=== PATIENT | female | born 1940 | race Caucasian/White ===

== ENCOUNTER 2017-06-06 06:17 | Day surgery (SDC) | payer MEDICARE, BC, OTHER ==
[~2017-06-06 06:17] MED LIST: BACL10TA PO; BENA25TA5 PO; BENI40TA30 PO; CLON1 PO; EPIP0.3I IM; GABA300C3 PO; METO25 PO; NORV5TAB PO; PRED50TA PO; SERT-132 PO
[2017-06-06] MEDS ORDERED: CHLORHEXIDINE GLUCONATE 2 % 1 PACK (2 CLOTHS) TOPICAL SCH (07:00)
[2017-06-06] MEDS ORDERED: POVIDONE IODINE 5% (ANTISEPSIS KIT) 4 APPLICATIONS EACH NARE SCH (07:00)
[2017-06-06] MEDS ORDERED: MUPIROCIN 2% OINT 1 APPLIC/GM SYR NASAL SCH (07:00)
[2017-06-06] MEDS ORDERED: ceFAZolin 2 GM PREMIX 50 ML IV SCH (07:00)
[2017-06-06] MEDS ORDERED: NS 1000 ML IV SCH (07:00)
[2017-06-06] MEDS ORDERED: PRAM0.25 PO (07:03)
[2017-06-06] MEDS ORDERED: BUSP1TAB PO (07:03)
[2017-06-06] MEDS ORDERED: HYDR25TA5 PO (07:03)
[2017-06-06] MEDS ORDERED: METO50TA PO (07:03)
[2017-06-06] MEDS ORDERED: LOSA100T PO (07:03)
[2017-06-06] MEDS ORDERED: hydrALAZINE HCL 20 MG/ML VIAL ONE (09:09)
[2017-06-06] MEDS ORDERED: hydrALAZINE HCL 20 MG/ML VIAL IV PUSH ONE (09:30)
--- NOTE | 2017-06-06 09:32 | MA ---
cc: Yusuf Carmona MD 06/06/2017 PROCEDURE PERFORMED: Loop recorded insertion. PERFORMING PHYSICIAN: Yusuf Carmona MD INDICATION: Atrial fibrillation detection. DESCRIPTION OF PROCEDURE: The patient was brought to the DOC Unit in the postabsorptive state after informed consent was obtained. A CRE Secure LINQ loop recorder was inserted subcutaneously in the left chest. The patient tolerated the procedure well, without any apparent complications. Tachy-tory pause in atrial fibrillation detection was enabled. The initial R-wave was 0.52 millivolts. The serial number was [id number]. MD WALTER Baker/ANGIE , 08:41 AM , 09:31 AM
== END 2017-06-06 09:34 | disposition home or self-care (01) ==
LOC: HDOC 06:17 → HDIC 06:18 → HDOC 09:34
PROVIDERS: ATTEND Nuclear Medicine Nuclear Cardiology
DX: I48.91 Unspecified atrial fibrillation (principal); I10 Essential (primary) hypertension
CPT/HCPCS: 33282; C1764; J0360; J0690

== ENCOUNTER 2017-08-11 05:41 | Day surgery (SDC) | payer MEDICARE, BC, OTHER ==
[2017-08-11] VITALS (10 sets, daily range): BP systolic 125–181; BP diastolic 70–119; PULSE 48–84; RESP 14–16; TEMP 97.7–98.7; O2SAT 97–98
[~2017-08-11] VITALS: Ht 160 cm; Wt 75.8 kg
[~2017-08-11 05:41] MED LIST changes: -BACL10TA PO; -BENA25TA5 PO; -BENI40TA30 PO; +BUSP1TAB PO; -CLON1 PO; -EPIP0.3I IM; -GABA300C3 PO; +HYDR25TA5 PO; +LOSA100T PO; -METO25 PO; +METO50TA PO; -NORV5TAB PO; +PRAM0.25 PO; -PRED50TA PO; -SERT-132 PO
[2017-08-11] MEDS ORDERED: LORazepam 1 MG TAB SL SCH (06:00)
[2017-08-11] MEDS ORDERED: CHLORHEXIDINE GLUCONATE 2 % 1 PACK (2 CLOTHS) TOPICAL PRN (06:15)
[2017-08-11] MEDS ORDERED: METOPROLOL TARTRATE 25 MG TAB PO PRN (06:15)
[2017-08-11] MEDS ORDERED: POVIDONE IODINE 5% (ANTISEPSIS KIT) 4 APPLICATIONS EACH NARE PRN (06:15)
[2017-08-11] MEDS ORDERED: LACTATED RINGER'S 1000 ML IV PRN (06:15)
[2017-08-11] MEDS ORDERED: SODIUM CHLORID 0.9% 500 ML IV PRN (06:15)
[2017-08-11] MEDS ORDERED: ASPI81CH6 CHEW (06:45)
[2017-08-11 06:52] LABS: AUTOMATED NEUTROPHIL # 3.4 TH/MM3 (1.8-7.7); BASOPHIL # 0.1 TH/MM3 (0-0.2); BASOPHIL % 1.1 % (0.0-2.0); EOSINOPHIL # 0.1 TH/MM3 (0-0.4); EOSINOPHIL % 2.3 % (0.0-4.0); HEMATOCRIT 33.2 % (35.0-46.0); HEMOGLOBIN 11.3 GM/DL (11.6-15.3); LYMPH % 26.1 % (9.0-44.0); LYMPHOCYTE # 1.4 TH/MM3 (1.0-4.8); MEAN CORPUSCULAR HEMOGLOBIN 28.2 PG (27.0-34.0); MEAN CORPUSCULAR HGB CONC 33.9 % (32.0-36.0); MEAN PLATELET VOLUME 7.9 FL (7.0-11.0); MONO % 8.2 % (0.0-8.0); MONOCYTE # 0.4 TH/MM3 (0-0.9); NEUT % 62.3 % (16.0-70.0); PLATELET COUNT 203 TH/MM3 (150-450); RED CELL DISTRIBUTION WIDTH 14.1 % (11.6-17.2); WHITE BLOOD COUNT 5.5 TH/MM3 (4.0-11.0)
[2017-08-11] MEDS ORDERED: MIDAZOLAM HCL 2 MG/2 ML VIAL ONE (06:55)
[2017-08-11 06:59] LABS: PROTHROMBIN TIME - PATIENT 10.3 SEC (9.8-11.6)
[2017-08-11] MEDS ORDERED: ISOPROTERENOL INJ PREMIX 50 ML IV ONE (06:59)
[2017-08-11] MEDS ORDERED: HEPARIN SODIUM - IV 10,000 UNITS/10 ML VIAL ONE (07:00)
[2017-08-11] MEDS ORDERED: HEPARIN-D5W 25,000 U/250 ML 250 ML ONE (07:00)
[2017-08-11] MEDS ORDERED: PROTAMINE SULFATE 50 MG/5 ML VIAL ONE (07:01)
[2017-08-11 07:24] LABS: BICARBONATE 27.5 MEQ/L (21.0-32.0); CALCIUM 8.7 MG/DL (8.5-10.1); CREATININE 1.14 MG/DL (0.50-1.00)
[2017-08-11] MEDS: SODIUM CHLORID 0.9% 500 ML INJ 500 ML IV SCH ×2 (07:30→22:49)
[2017-08-11] MEDS ORDERED: HEPARIN-NS/PF FLUSH BAG 1,000 ML IV FLUSH ONE (07:39)
[2017-08-11] MEDS ORDERED: SODIUM CHLOR 0.9% 250 ML INJ 250 ML IV PRN (09:00)
[2017-08-11] MEDS ORDERED: LIDOCAINE HCL 1% 50 ML VIAL INFIL PRN (09:00)
[2017-08-11] MEDS ORDERED: BACITRACIN OINT 0.9 GM PKT TOP ONE (09:00)
[2017-08-11] MEDS ORDERED: oxyCODONE/ACETAMINOPHEN 5 MG/325 MG TAB PO PRN ×2 (09:00)
[2017-08-11] MEDS ORDERED: LORazepam 2 MG/ML VIAL IV PUSH PRN (09:00)
[2017-08-11] MEDS ORDERED: ATROPINE SULFATE 1 MG/ML VIAL IV PUSH PRN (09:00)
--- NOTE | 2017-08-11 09:09 | CATHPROC ---
Patient Name: JACK VELAZQUEZ Study #: [id number] Initial MD: Janelle Martinez Date of : 1940 Study Date: 08/11/2017 Cardiac Catheterization Report 08/11/2017 9:09:03 AM Financial #: [id number] 1 of 9 Patient Name: JACK VELAZQUEZ Study #: [id number] Initial MD: Janelle Martinez Date of : 1940 Study Date: 08/11/2017 Entire Case Report Patient Information Patient Name JACK VELAZQUEZ Date of 1940 Age 77 years Financial # [id number] Gender F AlternateID Lab Number 2 Room Number DC05 Height (in) 64.0 Height (cm) 162.6 BSA 1.81 Weight (lbs) 166.8 Weight (kg) 75.8 Patient Address/Phone Number Home Address [facility] Home Phone Number [phone] [facility] [place] [address] Study Information Study Number Admission Scheduled Start Study Start [id number] Aug 11 2017 5:41AM 08/11/2017 Aug 11 2017 6:48AM [place] Service Electrophysiology Study Admit Source Facility Department Other [facility] - Inventory Accountant Physician and Clinical Staff Initial Janelle Whitney Event Producer Magdaleno Way,RT(R) Event Producer Shannon Zhang,DAILY RELEASE AND DUPE PRINTER Other Anesthesia, MARINE UNDERWRITER Recorder Scarlet Higgins,JANENE Scrub Saskia Kang,SIDE GUIDER TECH2 Procedures Performed Procedure Location (Site) Vessel Name RF Ablation Isthmus Other 08/11/2017 9:09:03 AM Financial #: [id number] 2 of 9 Patient Name: JACK VELAZQUEZ Study #: [id number] Initial MD: Janelle Martinez Date of : 1940 Study Date: 08/11/2017 Equipment Time Preparation Supervisor Freezing Description Size Mfg Part Number Used/Scraped BIOSENSE IBARRA CATHETER, CELSIUS, 4MM, D [id number] 08:32 FR 7 Used INC. TYPE QUAD *[id number] 07:24 MEDLINE INDUSTRIES PACK, CCL CUSTOM * Used *[id number] 07:24 MEDLINE PACER MORRELL, LIMB * 2530 *[id number] Used [id number] 07:24 [employer]EDRA MED[employer] BLANKET,WARM AIR CCL * Used *[id number] 07:25 ST. RUP[employer] MEDICAL CATHETER, JSN, QUAD FR 5 Used *[id number] 07:25 [employer] RUP[employer]ER MEDICAL CATHETER, JSN, QUAD FR 5 Used *[id number] 842886 07:25 [employer] RUP[employer]ER MEDICAL CATHETER, JSN, QUAD FR 5 Used *[id number] 310317 07:25 [employer] RUP[employer]ER MEDICAL CATHETER, JSN, QUAD FR 5 Used *1622485 [id number] 07:24 ST. RUPINDER MEDICAL ELECTRODE KIT, CHRISTIANA X SURFACE * Used *7350060 247097 07:25 [employer] RUP[employer] MEDICAL SHEATH, EPS, FR5 FAST CATH FR 5 Used *[id number] 391227 07:25 [employer] RUPINDER MEDICAL SHEATH, EPS, FR5 FAST CATH FR 5 Used *1218016 195801 07:25 [employer] RUPINDER MEDICAL SHEATH, EPS, FR5 FAST CATH FR 5 Used *[id number] 549158 07:25 [employer] RUPINDER MEDICAL SHEATH, EPS, FR6 FAST CATH FR 6 Used *4848954 533184 07:25 [employer] RUPINDER MEDICAL SHEATH, EPS, FR8 FAST CATH FR 8 Used *[id number] [facility] PAD, ELECTROSURGICAL 07:24 * [id number] *[id number] Used SURGICAL GROUNDING (BLUE) Insurance Information Insurance Payor Medicare Third Libertarian Third Libertarian Number MEDICARE A B MCRAB History: Allergies Allergy Reaction primidone angioedema No Known Allergies History: Risk Factors Hypertension Yes Labs 08/11/2017 9:09:03 AM Financial #: [id number] 3 of 9 Patient Name: JACK VELAZQUEZ Study #: [id number] Initial MD: Janelle Martinez Date of : 1940 Study Date: 08/12/19 18 Hgb (g/dl) Hct (%) RBC (MIL/MM3) WBC (l/cumm) Platelets (thousands) 11.60-17.00 35.00-51.00 4.00-5.90 4.00-11.00 150.00-450.00 11.0 33 4 5.5 203 Glucose (mg/dl) BUN (mg/dl) Creatinine (mg/dl) BUN:Creatinine (1:x) 74.00-106.00 7.00-18.00 0.50-1.30 10.00-20.00 98 15 1.1 13.6 Na (meq/l) K (meq/l) 136.00-145.00 3.50-5.10 141 4 INR (PTT:PT) 0.90-1.10 1 Medication Medication Total Dose (Bolus/Oral) Medication Total Dosage/Unit 1% XYLOCAINE 40 mL Medications (Bolus/Oral) Medication Time Given Dosage/Unit Administered By Reason 1% XYLOCAINE 08/11/2017 8:07:24 AM 20 mL Janelle Martinez 20 mL 1% XYLOCAINE given in lab by Janelle Martinez in Left Groin via Subcutaneous. 1% XYLOCAINE 08/11/2017 8:10:28 AM 20 mL Janelle Martinez 20 mL 1% XYLOCAINE given in lab by Janelle Martinez in Right Groin via Subcutaneous. Medication (Drip) Medication Time Given Dosage/Unit Concentration/Unit Diluent (ml) Solution ISUPREL 08/11/2017 8:23:00 AM 4 mcg/min 1 mg 250 NaCl .9 4 mcg/min ISUPREL given in lab by An, MARINE UNDERWRITER via Peripheral IV. Pump/Drip Flow = 60 ml/hr using NaCl .9 with a concentration of 1 mg in 250 ml. Ordered by Janelle Martinez. Reason: As per physicians verbal order. IV Solutions 08/11/2017 7:27:08 AM 0 mL (IV) 500 NaCl .9 IV Solutions given in lab by Scarlet Higgins RN in Right Antecubital via Peripheral IV. Pump/Drip F low = 20 ml/hr using NaCl .9. Ordered by Janelle Martinez. IV Solutions 08/11/2017 7:28:13 AM 0 mL (IV) 500 NaCl .9 IV Solutions given in lab by Scarlet Higgins RN in Left Antecubital via Peripheral IV. Pump/Drip Fl ow = 20 ml/hr using NaCl .9. Ordered by Janelle Martinez. 08/11/2017 9:09:03 AM Financial #: [id number] 4 of 9 Patient Name: JACK VELAZQUEZ Study #: [id number] Initial MD: Janelle Martinez Date of : 1940 Study Date: 08/11/2017 Initial Case Assessment Cardiovascular HR Rhythm NIBP 75 sr 185/112 Edema Present Skin color Skin None Normal Warm Dry Circulatory - Right Pulses Posterior Tibial 3 Scale (0,1,2,3,4,d) Circulatory - Left Pulses Posterior Tibial 3 Scale (0,1,2,3,4,d) Circulatory - Lower Extremities Color Lower Right Color Lower Left Normal Normal Neurological State Oriented to time-place- Alert Moves all extremities person Respiration - General SpO2 (%) 99 08/11/2017 9:09:03 AM Financial #: [id number] Patient Name: JACK VELAZQUEZ Study #: [id number] Initial MD: Janelle Martinez Date of : 1940 Study Date: 08/11/2017 Final Case Assessment Cardiovascular HR Rhythm NIBP Chest Pain 93 sr 115/71 0 Edema Present Skin color Skin None Normal Warm Dry Circulatory - Right Pulses Posterior Tibial 3 Scale (0,1,2,3,4,d) Circulatory - Left Pulses Posterior Tibial 3 Scale (0,1,2,3,4,d) Circulatory - Lower Extremities Color Lower Right Color Lower Left Normal Normal Neurological State Drowsy Moves all extremities Respiration - General Respiration Rate SpO2 (%) O2 (lpm) (B/min) 16 91 6 Chronological Log Time Study Chronological Log 7:23:47 Patient arrived via Bed. 7:23:51 Patient Name, D.O.B, / Armband Verified By R.N. 7:23:52 Consent signed by the physician and the patient and verified by the Inventory Accountant staff. 7:23:53 Pre-op and post- op instructions given; patient acknowledges understanding of instructions. 7:25:24 Verbal Stimulation=2 Physical Stimulation=2 Airway=2 Respiration=2 TOTAL=8. (0=absent, 1=li mited, 2=present) 7:26:02 Patient has been NPO for More than 6Hrs. 7:26:03 Skin Breakdown/none per pt 7:26:19 Patient Warmer Placed on the Table. 7:26:20 Disposable Defibrillator Pads Placed On Patient. 08/11/2017 9:09:03 AM Financial #: [id number] Patient Name: JACK VELAZQUEZ Study #: [id number] Initial MD: Janelle Martinez Date of : 1940 Study Date: 08/11/2017 7:26:21 Vinay Prominences Protected 7:26:49 A # 20 IV was noted in the Antecubital (left). Grade = 0 7:27:00 A # 20 IV was noted in the Antecubital (right). Grade = 0 IV Solutions given in lab by Scarlet Higgins RN in Right Antecubital via Peripheral IV. Pump/ Drip Flow = 20 ml/hr 7:27:08 using NaCl .9. Ordered by Janelle Martinez. IV Solutions given in lab by Scarlet Higgins RN in Left Antecubital via Peripheral IV. Pump/D rip Flow = 20 ml/hr 7:28:13 using NaCl .9. Ordered by Janelle Martinez. 7:28:37 History and physical on the chart. Assessment: Initial Case, HR=75 BPM, Rhythm=sr, JAOE=945/112 mmhg, Edema=None, Color=Normal, Sk in = Warm, Dry Right Pulses: Post Tib=3 Left Pulses: Post Tib=3 7:28:42 Lower Right Extremities: Color=Normal Lower Left Extremities: Color=Normal Neurological: State=Alert, Ox3, VALERIO Respiration: SpO2=99 % 7:32:04 Table restraints applied according to hospital policy 7:32:26 All vital signs will be recorded by Anesthsia during the procedure on their flow sheet. 7:40:07 Bilateral groins prepped with 2% chlorhexidine, and draped after a 3 minute waiting time. 7:42:08 MD paged 8:04:28 MD arrived. Time Out. Correct patient, procedure, procedure equipment, site and side verified with physicia n present. Time 8:06:00 concurred by MD, individual staff and MARINE UNDERWRITER. Time Out #2 - Consents verified, patient in correct position, all results are labled and displa yed, safety precautions 8:06:28 taken, antibiotics administered. Time out concurred by MD, individual staff and MARINE UNDERWRITER in procedu re 8:06:52 Case Start 8:07:24 20 mL 1% XYLOCAINE given in lab by Janelle Martinez in Left Groin via Subcutaneous. 8:08:46 Vascular access was obtained in the Fem Vein (left). 8:08:48 Vascular access was obtained in the Fem Vein (left). 8:08:52 Vascular access was obtained in the Fem Vein (left). 8:08:56 A SHEATH, EPS, FR5 FAST CATH FR 5 was advanced into the Fem Vein (left) using the Modified Seldinger technique. 8:09:03 A SHEATH, EPS, FR5 FAST CATH FR 5 was advanced into the Fem Vein (left) using the Modified Seldinger technique. 8:09:07 A SHEATH, EPS, FR5 FAST CATH FR 5 was advanced into the Fem Vein (left) using the Modified Seldinger technique. 8:10:28 20 mL 1% XYLOCAINE given in lab by Janelle Martinez in Right Groin via Subcutaneous. 8:10:48 Vascular access was obtained in the Fem Vein (right). 8:10:57 Vascular access was obtained in the Fem Vein (right). 8:11:02 A SHEATH, EPS, FR6 FAST CATH FR 6 was advanced into the Fem Vein (right) using the Modified Seldinger technique. 8:11:12 A SHEATH, EPS, FR8 FAST CATH FR 8 was advanced into the Fem Vein (right) using the Modified Seldinger technique. A CATHETER, JSN, QUAD FR 5 was advanced vis Fem Vein (left) and placed in the CS. Placement was visually 8:15:02 confirmed under fluoroscopy. A CATHETER, JSN, QUAD FR 5 was advanced vis Fem Vein (left) and placed in the HIS. Placement wa s visually 8:16:10 confirmed under fluoroscopy. A CATHETER, JSN, QUAD FR 5 was advanced vis Fem Vein (left) and placed in the RVA. Placement wa s visually 8:17:14 confirmed under fluoroscopy. 08/11/2017 9:09:03 AM Financial #: [id number] 7 of 9 Patient Name: JACK VELAZQUEZ Study #: [id number] Initial MD: Janelle Martinez Date of : 1940 Study Date: 08/11/2017 A CATHETER, JSN, QUAD FR 5 was advanced vis Fem Vein (right) and placed in the HRA. Placement was visually 8:17:24 confirmed under fluoroscopy. 8:17:51 EPS in progress. 4 mcg/min ISUPREL given in lab by Anesthesia, MARINE UNDERWRITER via Peripheral IV. Pump/Drip Flow = 60 ml/h r using NaCl .9 with 8:23:00 a concentration of 1 mg in 250 ml. Ordered by Janelle Martinez. Reason: As per physicians verbal order. A CATHETER, CELSIUS, 4MM, D TYPE QUAD FR 7 was advanced vis Fem Vein (right) and placed in the HRA. Placement 8:31:24 was visually confirmed under fluoroscopy. 8:32:00 RF Ablation of the Isthmus with a CATHETER, CELSIUS, 4MM, D TYPE QUAD FR 7. 8:35:25 Isuprel off 8:40:00 Ablation complete. 8:41:58 All catheter(s) removed without difficulty 8:44:19 Right groin sheaths removed; pressure applied to access sites by TF. 8:44:40 Left groin sheaths removed; pressure applied to access sites by DB. 8:44:45 No case complications noted. 8:45:00 Case End 8:45:40 DOCU called. Spoke to Shalom 8:46:30 Bedside Report will be given. Assessment: Final Case, HR=93 BPM, Rhythm=sr, IBBH=162/71 mmhg, Chest Pain=0, Edema=None, Sunset r=Normal, Skin = Warm, Dry Right Pulses: Post Tib=3 Left Pulses: Post Tib=3 8:50:46 Lower Right Extremities: Color=Normal Lower Left Extremities: Color=Normal Neurological: State=Drowsy, VALERIO Respiration: Resp=16 B/min, SpO2=91 %, O2=6 lpm 8:56:34 Sterile dressing applied to sites End Study - Contrast Media Used In Study Contrast Total Opened (mL) Total Used (mL) Total Wasted (mL) Unspecified 0 0 0 End Study - Maximum Contrast Load Max Contrast Load (mL) 344.6 End Study - Radiation Exposure Fluoro Time (minutes) 2.3 08/11/2017 9:09:03 AM Financial #: [id number] Patient Name: JACK VELAZQUEZ Study #: [id number] Initial MD: Janelle Martinez Date of : 1940 Study Date: 08/11/2017 End Study - Patient Disposition Complications Transferred To Interventional Outcome No Telemetry Bed successful 08/11/2017 9:09:03 AM Financial #: [id number]
--- NOTE | 2017-08-11 09:54 | MA ---
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 INDICATIONS: Mrs. Yi is a 77-year-old female with recurrent tachyarrhythmia referred for electrophysiology study and ablation. The risks, the nature and the benefits of the procedure were clearly stated to her. The risks include pneumothorax, cardiac perforation, stroke and even . She understood and agreed to proceed. PROCEDURE: After written informed consent was obtained, the patient was brought to the EP lab where she was prepped and draped in the usual sterile fashion. Conscious sedation was initiated with maintained throughout the procedure by anesthesiologist. Once sedation verified, the right and left inguinal area was anesthetized with 2% Xylocaine. Using modified Seldinger technique, the left femoral vein was cannulated on 2 occasions and 2 guidewires were advanced over the wire, two 5-Argentine Hemaquets were advanced. Then the right femoral vein was cannulated on 2 occasions and 2 guidewires were advanced over the wire. A 6 and an 8-Argent[place] Hemaquet were advanced. Then under fluoroscopic guidance through the 5 and 6-Argentine Hemaquet, four 5 Argentine Tootie curved quadripolar electrophysiology catheters were advanced and placed upon the His, right atrium, coronary sinus and right ventricular apex. Basic intervals were measured and they were within normal limits. At this point, atrial pacing protocol was performed. Atrial pacing protocol consisted of incremental atrial pacing as well as programmed stimulation with 1 [address] train cycle length and up to 1 extra stimuli delivered. A self-limited atrial tachyarrhythmia versus pulmonary vein tachyarrhythmia was induced. Then, ventricular pacing protocol was performed. There was VA conduction. It was concentric. Then, atrial pacing protocol was repeated at the coronary sinus. No tachyarrhythmia was induced. Then Isuprel infusion was initiated at 4 mcg. During atrial pacing protocol, supraventricular tachyarrhythmia with endo cardiac characteristics of AV danni reentrant tachycardia was induced. It was pace terminated. Then, through the 8 Argentine Hemaquet, a Cordis Saavedra d-curve 4 mm mapping radiofrequency ablation catheter was advanced. Using [employer] Mapping System, a 2-dimensional configuration of the right atrium was obtained. Then, the catheter was placed at the tricuspid valve annulus. When a big V and a small A observed, radiofrequency energy was delivered. Multiple junctional beats observed. Further burn was delivered in the area. Then, atrial pacing protocol was repeated again. No tachyarrhythmia was induced. On Isuprel, no tachyarrhythmia was induced. Then ventricular pacing protocol was repeated again. No tachyarrhythmia was induced. Time to time during monitoring, the patient went into short bursts of atrial tachycardia. At that point, the procedure was complete. All catheters were removed. The patient is going to be transferred to the recovery room. No incident to report. The patient tolerated the procedure. Blood loss, minimal. 1. Electrocardiogram: At baseline, the patient was in sinus. Postprocedure electrocardiogram was unchanged. 2. Basic interval: The base cycle length was around 790, AH was at 92 and HV was 46 milliseconds. 3. Atrial pacing protocol: Wenckebach of the node was around 380 milliseconds at baseline and post-ablation it was around 410 milliseconds. During atrial pacing protocol on Isuprel, supraventricular tachyarrhythmia with endo cardiac characteristics of AV danni reentrant tachycardia was induced. It was pace terminated. 3. Ventricular pacing protocol: There was VA conduction. No tachyarrhythmia was induced. 4. Tachyarrhythmia: First, there was atrial tachycardia that was induced. Subsequently, there is a disorganized possible pulmonary vein tachyarrhythmia that was seen and after that, the patient went to AV node reentrant tachycardia. That was pace terminated and ablated. Ablation was successful. CONCLUSION: Successful electrophysiology study, mapping and radiofrequency ablation of AV danni reentry tachycardia. COMMENT AND RECOMMENDATIONS: The patient is going to be transferred to the telemetry unit. She will be observed. There is a possibility of pulmonary vein tachyarrhythmia. Further decision if necessary for ablation will be taken based on the monitor recording. Janelle Martinez MD HS/DL , 08:50 AM , 09:53 AM
[2017-08-11] MEDS: busPIRone HCL 5 MG TAB PO SCH ×2 (11:17→20:52)
[2017-08-11] MEDS: ASPIRIN 81 MG CHEW TAB CHEW SCH (11:17)
[2017-08-11] MEDS: SOTALOL HCL 80 MG TAB PO SCH ×2 (11:17→20:56)
[2017-08-11] MEDS ORDERED: ONDANSETRON ODT 4 MG TAB SL PRN (16:00)
--- NOTE | 2017-08-11 18:38 | EKG ---
Date Performed: 08/11/2017 Time Performed: 06:46:30 PTAGE: 77 years EKG: Sinus arrhythmia. rSr'(V1) - probable normal variant Lateral T wave changes are nonspecific Low QRS voltages in precordial leads Since the previous tracing, no significant change noted Borderl ine ECG PREVIOUS TRACING : 06/12/2015 10.24 DOCTOR: Ted Camp Interpretating Date/Time 08/11/2017 18:36:46
--- NOTE | 2017-08-11 18:38 | EKG ---
Date Performed: 08/11/2017 Time Performed: 13:10:54 PTAGE: 77 years EKG: Sinus rhythm . rSr'(V1) - probable normal variant Since the previous tracing, no significant change noted Normal E CG PREVIOUS TRACING : 08/11/2017 06.46 DOCTOR: Ted Camp Interpretating Date/Time 08/11/2017 18:36:57
[2017-08-11] MEDS ORDERED: PRAMIPEXOLE DIHYDROCHLORIDE 0.25 MG TAB PO SCH (21:00)
[2017-08-11] MEDS ORDERED: LOSARTAN 50 MG TAB PO SCH (21:00)
[2017-08-11] MEDS ORDERED: HYDROCHLOROTHIAZIDE 25 MG TAB PO SCH (21:00)
[2017-08-12] VITALS (12 sets, daily range): BP systolic 164–171; BP diastolic 90–96; PULSE 45–66; RESP 15–16; TEMP 98.1; O2SAT 98
[2017-08-12 04:37] LABS: PROTHROMBIN TIME - PATIENT 10.4 SEC (9.8-11.6)
[2017-08-12] MEDS: SOTALOL HCL 80 MG TAB PO SCH (08:24)
[2017-08-12] MEDS: ASPIRIN 81 MG CHEW TAB CHEW SCH (08:25)
[2017-08-12] MEDS: busPIRone HCL 5 MG TAB PO SCH (09:52)
--- NOTE | 2017-08-12 11:15 | HHI.PR ---
Subjective Remarks Feeling better Objective Vital Signs Date Time Temp Pulse Resp B/P (MAP) Pulse Ox O2 Delivery O2 Flow Rate FiO2 08/12/17 10:00 52 08/12/17 09:00 52 08/12/17 08:00 66 08/12/17 07:00 98.1 55 16 171/96 (121) 98 08/12/17 07:00 45 08/12/17 06:13 50 08/12/17 05:00 50 08/12/17 03:39 98.1 58 15 164/90 (114) 98 08/12/17 03:00 57 08/12/17 02:00 46 08/12/17 01:00 46 08/12/17 00:00 52 08/11/17 23:46 97.9 59 15 141/86 (104) 97 08/11/17 23:00 48 08/11/17 22:00 62 08/11/17 21:00 64 08/11/17 20:00 56 08/11/17 19:47 97.7 60 15 151/80 (103) 97 08/11/17 19:00 57 08/11/17 15:00 98.0 55 14 125/70 (88) 97 08/11/17 13:45 98.7 71 16 154/95 (114) 97 I/O 08/11/17 08/11/17 08/11/17 08/12/17 08/12/17 08/12/17 07:00 15:00 23:00 07:00 15:00 23:00 Intake Total 0 ml 240 ml 480 ml Output Total 200 ml Balance 0 ml 40 ml 480 ml Intake Oral 240 ml 480 ml IV Total 0 ml Output Urine Total 200 ml # Voids 3 Result Diagram: 08/11/1730 08/11/17 06 Imaging Alert, fully oriented lungs: ventilated Heart: s1, S2 regular, no gallop abdomen: soft, no mass Ext: no edema Current Medications Medications (Trade) Dose Ordered Sig/Souleymane Route Start Time Stop Time Status Last Admin Sodium Chloride 500 ml @ 30 mls/hr [id number] IV 08/11/17 06:00 08/11/17 07:30 (Ativan) 1 mg VETERANS' COUNSELOR SL 08/11/17 06:00 08/14/17 05:59 Lactated Ringer's 1,000 ml @ 30 mls/hr Q24H PRN IV 08/11/17 06:15 08/14/17 06:14 Sodium Chloride 500 ml @ 30 mls/hr [id number] PRN IV 08/11/17 06:15 08/14/17 06:14 (Lopressor) 25 mg VETERANS' COUNSELOR PRN PO 08/11/17 06:15 08/14/17 06:14 (Betadine 5% Antisepsis Kit) 1 applic VETERANS' COUNSELOR PRN EACH NARE 08/11/17 06:15 08/14/17 06:14 (Chlorhexidine 2% Cloth) 3 pack VETERANS' COUNSELOR PRN TOPICAL 08/11/17 06:15 08/14/17 06:14 (Percocet 5-325 Mg) 1 tab Q4H PRN PO 08/11/17 09:00 08/11/17 13:18 (Percocet 5-325 Mg) 2 tab Q4H PRN PO 08/11/17 09:00 (Atropine Inj) 0.5 mg UNSCH PRN IV PUSH 08/11/17 09:00 (Zofran Odt) 4 mg Q4H PRN SL 08/11/17 16:00 (Aspirin Chew) 81 mg DAILY CHEW 08/11/17 09:00 08/12/17 08:25 (Buspar) 7.5 mg BID PO 08/11/17 10:00 08/12/17 09:52 (Hydrodiuril) 25 mg HS PO 08/11/17 21:00 08/11/17 20:52 (Cozaar) 100 mg HS PO 08/11/17 21:00 08/11/17 20:53 (Mirapex) 0.25 mg HS PO 08/11/17 21:00 08/11/17 20:52 (Betapace) 80 mg Q12HR PO 08/11/17 10:00 08/12/17 08:24 Assessment and Plan Problem List: (1) Palpitations ICD Codes: R00.2 - Palpitations Plan: No new episode reported (2) Supraventricular tachycardia ICD Codes: I47.1 - Supraventricular tachycardia Plan: SP AVNRT ablation Doing well Will be DH sotalol will be added due to possible atrial tach Case discussed with patient Follow up as previously scheduled. Janelle Martinez MD August 12, 2017 11:15
[2017-08-12] MEDS ORDERED: SOTA80 PO (11:18)
--- NOTE | 2017-08-12 19:21 | EKG ---
Date Performed: 08/12/2017 Time Performed: 05:37:00 PTAGE: 77 years EKG: Sinus bradycardia Prolonged QT interval rSr'(V1) - probable normal variant Possible septal infarct - age undetermined when compared to prior tracing, patient is now bradycardic . Abnormal ECG PREVIOUS TRACING : 08/11/2017 13.10 DOCTOR: Daniella Jones Interpretating Date/Time 08/12/2017 19:20:58
== END 2017-08-12 12:00 | disposition home or self-care (01) ==
LOC: HDIC 05:41 → HDOC 05:41 → HCPC 14:04 → HDOC 08-12 12:00
PROVIDERS: ATTEND Internal Medicine Interventional Cardiology
DX: I47.1 Supraventricular tachycardia (principal); R00.2 Palpitations; I11.9 Hypertensive heart disease without heart failure; R25.1 Tremor, unspecified; L82.1 Other seborrheic keratosis; R06.00 Dyspnea, unspecified; R06.02 Shortness of breath; Z01.818 Encounter for other preprocedural examination; Z01.810 Encounter for preprocedural cardiovascular examination
CPT/HCPCS: 00537; 80048; 82948; 85025; 85610; 85730; 86850; 86900; 86901; 93005; 93613; 93623; 93653; C1730; C1732; C2630; J1644; J2060; J2250; J3010; J7040; J2720